=== PATIENT | female | born 1980 | race Caucasian/White ===

== ENCOUNTER 2017-09-08 06:31 | Emergency (ER) | payer OTHER ==
[2017-09-08] MEDS ORDERED: Vancomycin(*) 1,000 MG VIAL IVPB SCH (07:00)
[2017-09-08] MEDS ORDERED: Piperacillin/Tazobac ADVAN(*) 3.375 GM in NS 0.9% 100 ML* 100 ML IVPB ONE (07:00)
[2017-09-08] MEDS: NS 0.9% 1000 ML* 2,000 ML IV ONE (07:00)
[2017-09-08] MEDS ORDERED: Lactated Ringers 1000 ml Bag*IV.FLUID IV ONE (07:00)
[2017-09-08 07:20] LABS: ABS Basophils 0.1 10^3/ul (0-0.2); ABS Eosinophils 0.2 10^3/ul (0-0.6); ABS Lymphocytes 2.5 10^3/ul (1.0-4.8); ABS Monocytes 0.7 10^3/ul (0-0.8); ABS Neutrophils 8.4 10^3/ul (1.5-7.7); ABS Nucleated RBC 0 10^3/ul; Eosinophil % 1.6 % (0-6); Hematocrit 39 % (35-47); Lymphocyte % 21.3 % (25-47); Mean Corpuscular HGB Conc 34 g/dl (31-36); Mean Corpuscular Hemoglobin 28 pg (27-31); Mean Corpuscular Volume 83 fL (80-97); Mean Platelet Volume 7.5 um3 (7.4-10.4); Nucleated Red Blood Cells % 0; Platelet Count 332 10^3/ul (150-450); Red Blood Count 4.67 10^6/ul (4.0-5.4); Red Cell Distribution Width 13 % (10.5-15); White Blood Count 11.8 10^3/ul (3.5-10.8)
--- NOTE | 2017-09-08 07:29 | ED ---
Abdominal Pain/Female - HPI Summary HPI Summary: Patient is a 37-year-old female with no significant PMH presenting to the ED with acute onset left sided pain, nausea, vomiting 4 since approximately 3 AM ( 3 hours [employer].) Endorses sweats and chills with unknown fever. Denies any back pain. Denies any urinary symptoms including dysuria, hematuria, burning or urgency. She states she has not tried to urinate since this morning. Denies any constipation or diarrhea. She endorses feeling completely fine yesterday and throughout the night until 3 AM. She did not anything out of the ordinary. Denies any known sick contacts and no travel. She appears very pale and diaphoretic on arrival. History of a cholecystectomy, but otherwise no surgical history. - History of Current Complaint Chief Complaint: EDAbdPain Stated Complaint: ABD PAIN, VOMITING Time Seen by Provider: 09/08/17 06:45 Hx Obtained From: Patient ?: No Onset/Duration: Sudden Onset Timing: Constant Severity Initially: Moderate Severity Currently: Moderate Pain Intensity: 9 Pain Scale Used: 0-10 Numeric Location: Discrete At: LLQ Radiates: Yes Radiates to: Flank, LLQ Character: Dull Aggravating Factor(s): Nothing Alleviating Factor(s): Nothing Associated Signs and Symptoms: Positive: Urinary Symptoms, Nausea, Vomiting. Negative: Diarrhea - Risk Factors Ectopic Risk Factor: Negative Ovarian Torsion Risk Factor: Negative Allergies/Adverse Reactions: Allergies Allergy/AdvReac Type Severity Reaction Status Date / Time No Known Allergies Allergy Verified 09/08/17 06:38 PMH/Surg Hx/FS Hx/Imm Hx Previously Healthy: Yes - Immunization History Hx Pertussis Vaccination: No Immunizations Up to Date: Unable to Obtain/Confirm Infectious Disease History: No Infectious Disease History: Denies: Traveled Outside the [place] in Last 30 Days - Social History Occupation: Employed Full-time Lives: With Family Alcohol Use: Rare Hx Substance Use: No Substance Use Type: Reports: None Hx Tobacco Use: No Smoking Status (MU): Never Smoked Tobacco Review of Systems Constitutional: Negative Negative: Fever, Chills, Fatigue Negative: Palpitations, Chest Pain Negative: Shortness Of Breath, Cough Positive: Abdominal Pain, Vomiting, Nausea. Negative: Diarrhea Genitourinary: Negative Positive: no symptoms reported, see HPI Musculoskeletal: Negative Skin: Negative Psychological: Normal All Other Systems Reviewed And Are Negative: Yes Physical Exam Triage Information Reviewed: Yes Vital Signs On Initial Exam: Initial Vitals Temp Pulse Resp BP Pulse Ox 94.9 F 49 20 132/90 99 09/08/17 06:38 09/08/17 06:38 09/08/17 06:38 09/08/17 06:38 09/08/17 06:38 Vital Signs Reviewed: Yes Appearance: Positive: Ill-Appearing, Pain Distress Skin: Positive: Diaphoretic, Pale Head/Face: Positive: Normal Head/Face Inspection Eyes: Positive: EOMI, STEPHANIA Neck: Positive: Supple, No Lymphadenopathy Respiratory/Lung Sounds: Positive: Clear to Auscultation, Breath Sounds Present Cardiovascular: Positive: Normal, RRR Musculoskeletal: Positive: Normal, Strength/ROM Intact Neurological: Positive: Sensory/Motor Intact, Speech Normal Psychiatric: Positive: Normal, Affect/Mood Appropriate AVPU Assessment: Alert Diagnostics - Vital Signs Vital Signs Temp Pulse Resp BP Pulse Ox 09/08/17 06:47 50 100 09/08/17 06:38 94.9 F 49 20 132/90 99 - Laboratory Lab Results: Lab Results 09/08/17 Range/Units 07:00 WBC 11.8 H (3.5-10.8) 10^3/ul RBC 4.67 (4.0-5.4) 10^6/ul Hgb 13.0 (12.0-16.0) g/dl Hct 39 (35-47) % MCV 83 (80-97) fL MCH 28 (27-31) pg MCHC 34 (31-36) g/dl RDW 13 (10.5-15) % Plt Count 332 (150-450) 10^3/ul MPV 7.5 (7.4-10.4) um3 Neut % (Auto) 71.1 (38-83) % Lymph % (Auto) 21.3 L (25-47) % [place] % (Auto) 5.5 (0-7) % Eos % (Auto) 1.6 (0-6) % Baso % (Auto) 0.5 (0-2) % Absolute Neuts (auto) 8.4 H (1.5-7.7) 10^3/ul Absolute Lymphs (auto) 2.5 (1.0-4.8) 10^3/ul Absolute Monos (auto) 0.7 (0-0.8) 10^3/ul Absolute Eos (auto) 0.2 (0-0.6) 10^3/ul Absolute Basos (auto) 0.1 (0-0.2) 10^3/ul Absolute Nucleated RBC 0 10^3/ul Nucleated RBC % 0 Result Diagrams: 09/08/17 07:00 09/08/17 07:00 Lab Statement: Any lab studies that have been ordered have been reviewed, and results considered in the medical decision making process. Abdominal Pain Fem Course/Dx - Course Course Of Treatment: During the course of treatment, the patient is evaluated for left sided pain accompanied by sweats and chills. On arrival she is found to be hypothermic at 94.9, pulse 49 respirations, 20, 99% on room air and BP stable at 132/90. She is cold to the touch and very diaphoretic. Sepsis protocol immediately initiated with 3040ml NS wide open, vancomycin, Zosyn for sepsis of unknown origin protocol. Rectal temp obtained after 1L fluids and at 98.6. CT abd/pelvis w/o contrast ordered to assess kidney stone vs pyelonephritis vs other urosepsis. Tenderness to the LLQ but vague. No tenderness to other quadrants. No CVA tenderness bilaterally. Chest CTA and RRR. IMPRESSION: LEFT NEPHROLITHIASIS INCLUDING A 0.3 CM CALCULUS OF THE LEFT UVJ WITH MILD HYDROURETER. During the course, Toradol and Zofran with good relief. Patient is requesting discharge. She states she feels improved and is currently a 0/10 on the pain scale. We'll discharge her home with pain medications and nausea medications as well as Flomax. She understands return precautions. After zosyn completed, CT results were obtained and patient feeling better so vancomycin was DC'd and not given. - Diagnoses Differential Diagnosis: Positive: Renal Colic, Urinary Tract Infection Provider Diagnoses: Kidney stone Is Visit Related: No Discharge - Sign-Out/Discharge Documenting (check all that apply): Discharge/Admit/Transfer - Discharge Plan Condition: Stable Disposition: HOME Prescriptions: Ondansetron ODT TAB* [Zofran 4 MG Odt TAB*] 4 mg PO Q6H PRN #12 tab.odt MDD 4 PRN Reason: Nausea Tamsulosin CAP* [Flomax CAP*] 0.4 mg PO BEDTIME #5 cap traMADol TAB* [Ultram*] 50 mg PO Q8H PRN #12 tab MDD 3 PRN Reason: Pain Patient Education Materials: Kidney Stones (ED) Referrals: No Primary Care Phys,NOPCP [Primary Care Provider] - Additional Instructions: Tramadol up to three times daily for pain strain urine if symptoms resolved after 1 day - you do not have to continue to strain your urine zofran as needed for nausea flomax at bedtime until symptoms resolve - Billing Disposition and Condition Condition: STABLE Disposition: HOME
[2017-09-08 07:37] LABS: EGFR Non-African American 59.3 (>60)
--- NOTE | 2017-09-08 07:47 | RAD ---
CLINICAL HISTORY: Left flank pain, chills, vomiting, sepsis COMPARISON: None TECHNIQUE: Multiple contiguous axial CT scans were obtained of the abdomen and pelvis, without intravenous contrast enhancement. Coronal and sagittal multiplanar reformations are submitted for review. Oral contrast was not administered. FINDINGS: The study is limited by the lack of intravenous contrast. This limits evaluation of the solid organs and vasculature. LUNG BASES: The lung bases are clear. LIVER: The liver is normal in shape, size, contour, and attenuation. BILE DUCTS: There is no intrahepatic or extrahepatic biliary dilatation. GALLBLADDER: The gallbladder is not visualized. Surgical clips are noted in the gallbladder fossa. PANCREAS: The pancreas is normal, without mass or ductal dilatation. SPLEEN: Normal in size and appearance. UPPER GI TRACT: Evaluation of the gastrointestinal tract is limited by incomplete gastric distention. The upper GI tract is unremarkable. SMALL BOWEL AND MESENTERY: The small bowel is normal in contour, course, and caliber. There is no obstruction or dilatation. COLON: The colon is normal in contour, course, caliber. There is no pericolonic inflammatory change. ADRENALS: Normal bilaterally. KIDNEYS: There are left renal calyceal stones measuring up to 0.4 cm in size. There is a 0.3 cm calculus of the left UVJ with mild hydroureter. BLADDER: The bladder is incompletely distended. As noted above, there is a 0.3 cm calculus of the left UVJ. PELVIC ORGANS: The uterus and adnexa are grossly normal for technique. An IUD is noted AORTA: The aorta is normal. IVC: Unremarkable LYMPH NODES: There is no lymphadenopathy by size criteria. ABDOMINAL WALL: There is no evidence for abdominal wall hernia. BONES AND SOFT TISSUES: Unremarkable OTHER: None IMPRESSION: LEFT NEPHROLITHIASIS INCLUDING A 0.3 CM CALCULUS OF THE LEFT UVJ WITH MILD HYDROURETER.
[2017-09-08 07:54] LABS: Urine Appearance Clear; Urine Blood Negative (Negative); Urine Color Yellow; Urine Ketones Negative (Negative); Urine Protein Negative (Negative); Urine Specific Gravity 1.026 (1.010-1.030); Urine Urobilinogen Negative (Negative)
[2017-09-08 08:17] LABS: INR 0.98 (0.77-1.02)
[2017-09-08] MEDS ORDERED: Tamsulosin CAP* 0.4 MG PO ONE (08:27)
[2017-09-08] MEDS ORDERED: Morphine VIAL* 4 MG/ML VIAL (1 ml vial) IV ONE (08:27)
[2017-09-08] MEDS ORDERED: Ondansetron INJ* 2 MG/ML VIAL IV ONE (08:27)
[2017-09-08] MEDS ORDERED: Ondansetron ODT TAB* 4 MG SL ONE (08:58)
[2017-09-08] MEDS ORDERED: Vancomycin 1500 MG IV - x ONCE IVPB ONE ×2 (09:00)
--- NOTE | 2017-09-08 09:09 | RAD ---
HISTORY: Sepsis COMPARISONS: None VIEWS: 4: Frontal dual-energy and lateral views of the chest. FINDINGS: CARDIOMEDIASTINAL SILHOUETTE: The cardiomediastinal silhouette is normal. FRANKLYN: The franklyn are normal. PLEURA: The costophrenic angles are sharp. No pleural abnormalities are noted. LUNG PARENCHYMA: The lungs are clear. ABDOMEN: The upper abdomen is clear. There is no subphrenic gas. BONES AND SOFT TISSUES: No bone or soft tissue abnormalities are noted. OTHER: None. IMPRESSION: NO ACTIVE CARDIOPULMONARY DISEASE.
[2017-09-08] MEDS ORDERED: Ketorolac INJ* 30 MG/ML 1 ML VIAL IV PUSH ONE (09:11)
[2017-09-08 10:42] VITALS: BP 160/90
== END 2017-09-08 10:41 | disposition home or self-care (01) ==
LOC: ED 06:31
DX: N20.2 Calculus of kidney with calculus of ureter (principal); R11.2 Nausea with vomiting, unspecified; R00.1 Bradycardia, unspecified
CPT/HCPCS: 36415; 71046; 74176; 80053; 81003; 83605; 83690; 83735; 84702; 85025; 85610; 86140; 87040; 93005; 96361; 96365; 96375; 99283; A9270-GY; J1885; J2270; J2543; J3370